=== PATIENT | male | born 1950 ===

== ENCOUNTER 2025-07-02 14:35 | Outpatient (CLI) | payer OTHER | END 2025-07-02 17:00 | disposition home or self-care (01) | LOC: Rad HDHVI 14:35 | PROVIDERS: ATTEND Internal Medicine Cardiovascular Disease | DX: I08.8 Other rheumatic multiple valve diseases (principal); Z95.1 Presence of aortocoronary bypass graft | CPT/HCPCS: 93306 ==

== ENCOUNTER 2025-07-04 14:14 | Outpatient (CLI) | payer OTHER ==
[~2025-07-04] VITALS: Ht 175.3 cm; Wt 83.5 kg
[2025-07-04] MEDS ORDERED: ADENOSINE 90 MG/30 ML INJ IV ONE (15:30)
[2025-07-04] MEDS ORDERED: ADENOSINE 70 MG in GIVE UN-DILUTED 0 ML IV ONE (17:00)
== END 2025-07-04 17:00 | disposition home or self-care (01) ==
LOC: Rad HDHVI 14:14
PROVIDERS: ATTEND Internal Medicine Cardiovascular Disease
DX: I48.91 Unspecified atrial fibrillation (principal); I49.3 Ventricular premature depolarization; I10 Essential (primary) hypertension; I45.10 Unspecified right bundle-branch block; I25.10 Atherosclerotic heart disease of native coronary artery without angina pectoris; E78.00 Pure hypercholesterolemia, unspecified; Z95.1 Presence of aortocoronary bypass graft
CPT/HCPCS: 78452; 93017; A9500; J0153